=== PATIENT | female | born 1955 | race Caucasian/White ===

== ENCOUNTER 2017-01-29 02:37 | Emergency (ER) | payer OTHER ==
[2017-01-29] MEDS ORDERED: Ibuprofen TAB* 600 MG PO ONE (02:42)
[2017-01-29 03:31] LABS: Hematocrit 39 % (35-47); Hemoglobin 13.2 g/dl (12.0-16.0); Mean Corpuscular HGB Conc 34 g/dl (31-36); Mean Corpuscular Hemoglobin 29 pg (27-31); Mean Corpuscular Volume 85 fL (80-97); Mean Platelet Volume 8 um3 (7.4-10.4); Red Cell Distribution Width 13 % (10.5-15)
[2017-01-29 03:36] LABS: Albumin 3.5 g/dL (3.2-5.2); EGFR African American 78.1 (>60); EGFR Non-African American 60.7 (>60); Globulin 2.4 g/dL (2-4); Potassium 3.9 mmol/L (3.5-5.0); Total Bilirubin 0.6 mg/dL (0.2-1.0); Total Protein 5.9 g/dL (6.4-8.9)
[2017-01-29 04:08] VITALS: BP 103/82
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
== END 2017-01-29 04:10 | disposition home or self-care (01) ==
LOC: ED 02:37
DX: M79.1 Myalgia (principal)
CPT/HCPCS: 36415; 80053; 85025; 87502; 99283; A9270-GY

== ENCOUNTER 2017-02-27 07:29 | Day surgery (SDC) | payer OTHER ==
[~2017-02-27 07:29] MED LIST: Buffered Lidocaine 0.9% SYRIN* 5 ML/SYR SYRINGE ONE; Dexamethasone IV* 4 MG/ML 1 ML (4 MG) IV SLOW PU ONE; Dexamethasone IV* 4 MG/ML 1 ML (4 MG) ONE; Famotidine IV* 10 MG/ML 2 ML (20 mg) IV ONE; Famotidine IV* 10 MG/ML 2 ML (20 mg) ONE; ceFAZolin 2 GM PREMIX(*) 2 GM/50 ML BAG IVPB ONE
[2017-02-27] MEDS ORDERED: fentaNYL* 50 MCG/ML 2 ML VIAL (100 MCG VIAL) ONE ×2 (09:36→10:51)
[2017-02-27] MEDS ORDERED: Midazolam* 1 MG/ML 5 ML VIAL (5 MG) ONE (09:36)
[2017-02-27] MEDS ORDERED: HYDROcodone/ACETAMIN 5-325 MG* 1 TAB PO PRN (09:40)
[2017-02-27] MEDS ORDERED: fentaNYL* 50 MCG/ML 2 ML VIAL (100 MCG VIAL) IV PRN (09:40)
[2017-02-27] MEDS ORDERED: PROCHLORPERAZINE INJ 5 MG/ML 2 ML VIAL IV PRN (09:40)
[2017-02-27] MEDS ORDERED: Bupivacaine 0.5% W/EPI SDV* 30 ML VIAL ONE (09:42)
[2017-02-27] MEDS ORDERED: Lidocaine 1% INJ* 10 MG/ML 30 ML SDV ONE (09:42)
[2017-02-27] MEDS ORDERED: Lidocaine 2% PF * 5 ML VIAL ONE (09:59)
[2017-02-27] MEDS ORDERED: Propofol* 10 MG/ML 20 ML BTL IV PUSH ONE (09:59)
[2017-02-27] MEDS ORDERED: EPHEDrine (Pressors)* 50 MG/ML VIAL ONE (10:21)
[2017-02-27] MEDS ORDERED: Ondansetron INJ* 2 MG/ML VIAL ONE (11:00)
--- NOTE | 2017-02-27 11:49 | SURGPN ---
Brief Operative Note - Surgery Procedures: Procedures Pre-OP Diagnoses: R arm neurofibroma Post-op Diagnosis: same Procedure: Wide excision of neurofibroma, frozen sections, advancemant flap and primary closure Surgeon: Amarjit Asst: none Anethesia: local PEPE Jenkins EBL: minimal IVF: crystalloid Specimen: R forearm lesion Drains: none
[2017-02-27 12:30] VITALS: BP 111/64
--- NOTE | 2017-02-27 18:52 | OP ---
CC: Imer Newton NP * DATE OF OPERATION: 02/27/17 - [facility] DATE OF : 57 SURGEON: Jakob Ocasio MD. STRATEGIC ACCOUNT MANAGER: None. ANESTHESIOLOGIST: Dr. Jenkins. ANESTHESIA: Local MAC. PRE-OP DIAGNOSIS: Neurofibroma of the right forearm. POST-OP DIAGNOSIS: Neurofibroma of the right forearm. OPERATIVE PROCEDURE: Wide excision of right forearm lesion with frozen sections and advancement flaps and primary closure. ESTIMATED BLOOD LOSS: Minimal. FLUIDS: Minimal crystalloid fluid given. SPECIMEN: Right forearm lesion. DRAINS: None. DESCRIPTION OF PROCEDURE: The patient was identified in the preoperative area, marked, brought to the operating room on the stretcher, arm placed on a board. She was given gentle sedation and the arm was prepped and draped right down to the hand sterilely and a time-out was performed. Lesion on the anterior aspect of the forearm was measured 2 x 3 cm, encompassing a previous transverse scar, was identified. Planned elliptical incision was marked out that would be longitudinal along the forearm. We injected 1% lidocaine for local block at this proposed elliptical incision site which was then made. We deepened this to the subcutaneous tissue and when we got down to the lesion, at the mid portion of this ellipse, we made flaps laterally with scalpel. The lesion was taken right down to the fascia of the muscle. It did appear that nerves were entering into the lesion, these were cut , but did not show any active disease. Specimen was then marked at the 12 o' clock position and brought down to the pathologist. Reviewing the frozen sections with the pathologist, it appeared that the 3 o' clock portion of the specimen had positive margins and decision was made to do additional incision, as the medial aspect of the arm at 3 o'clock position with respect to the excised portion was cut off again in a similar fashion right down to the fascia, marked with a stitch, and sent down to the pathologist. While frozen section was pending, advancement flaps were made laterally and medially. The skin edges were brought in apposition to each other and closed in a horizontal mattress fashion with 3-0 nylon sutures. Skin edges came together with some tension at the mid portion, I tried to eliminate dog ears at the edges. The incision in itself did not cross the popliteal fossa. We awaited frozen sections which turned out to be negative for margin and the wound was dressed with Xeroform, 4 x 4, Kerlix, and Coban. The patient tolerated the procedure well, was transferred to the PACU in stable condition. [id number]/[facility] #: [id number] [facility] BRONX HOSPITALIsabell
== END 2017-02-27 12:50 | disposition home or self-care (01) ==
LOC: OR 07:29
PROVIDERS: ATTEND Surgery
DX: D36.10 Benign neoplasm of peripheral nerves and autonomic nervous system, unspecified (principal)
CPT/HCPCS: 88305; 88331; 88332; J0690; J1100; J2001; J2250; J2405; J2704; J3010

== ENCOUNTER 2018-06-25 14:34 | Emergency (ER) | payer OTHER ==
[2018-06-25] MEDS ORDERED: NS 0.9% 1000 ML* 1,000 ML IV ONE (14:45)
[2018-06-25 14:52] VITALS: BP 143/75
--- NOTE | 2018-06-25 14:58 | ED ---
Headache - HPI Summary HPI Summary: 62-year-old female with history of migraine headaches presented to urgent care for headache. All ambulating to exam room patient had syncopal episode with brief loss of consciousness, collapsing to the floor. This episode was witnessed and no seizure-like activity was noted. Patient was assisted to wheelchair and taken to exam room where she was arousable but slow to respond. A brief neurologic exam was performed. Patient was following commands but gave poor effort. There did appear to be some mild left facial droop, decreased strength in the left upper and lower extremities, as well as a decreased left tank car inspector strength. Patient reports headache is 10/10 and associated with photophobia and nausea. She denies chest pain, palpitations, sensory deficit, abdominal pain, or other injury. states patient awoke this morning with a headache. She called him at work this afternoon stating her headache was worsening and that she was vomiting. states that when he arrived home he found her sitting in the cdl driver's seat of her car and she was unable to explain to him why she was sitting there. Denies recent head trauma. He states patient was hospitalized about a year ago for her migraine headaches. She has been followed by Dr. Oconnell, neurology. - History Of Current Complaint Chief Complaint: UCHeadache Stated Complaint: HEADACHE Time Seen by Provider: 06/25/18 14:48 Hx Obtained From: Family/Director Pharmaceutical Hx Last Menstrual Period: post menopausal Onset/Duration: Started hours ago Initially Headache Was: Severe Currently Pain Is: Severe Timing: Constant Character: Unable To Describe Aggravating Factor: Nothing Allevating Factors: Nothing Associated Signs And Symptoms: Nausea, Vomiting, Other (Noted In Comments) - Allergies/Home Medications Allergies/Adverse Reactions: Allergies Allergy/AdvReac Type Severity Reaction Status Date / Time No Known Allergies Allergy Verified 02/27/17 07:48 PMH/Surg Hx/FS Hx/Imm Hx Previously Healthy: Yes Cardiovascular History: Reports: Other Cardiovascular Problems/Disorders - cardiac stress test 06/2008 - reports diagnosis dehydration History: Reports: Other Problems/Disorders - 2014 donated right kidney ( [facility]) Sensory History: Reports: Hx Contacts or Glasses - glasses Denies: Hx Hearing Aid Opthamlomology History: Reports: Hx Contacts or Glasses - glasses Neurological History: Reports: Hx Migraine - occas, no meds - Cancer History Cancer Type, Location and Year: denies - Surgical History Surgery Procedure, Year, and Place: Donated right kidney 05/2015 -([facility]) Hx Anesthesia Reactions: No Infectious Disease History: No Infectious Disease History: Denies: History Other Infectious Disease, Traveled Outside the [place] in Last 30 Days - Family History Family History: Noncontributory - Social History Occupation: Employed Full-time Lives: With Family Alcohol Use: None Substance Use Type: Reports: None Smoking Status (MU): Never Smoked Tobacco Have You Smoked in the Last Year: No Review of Systems Constitutional: Negative Positive: Photophobia Cardiovascular: Negative Respiratory: Negative Positive: Vomiting, Nausea Musculoskeletal: Negative Skin: Negative Positive: Headache, Syncope All Other Systems Reviewed And Are Negative: Yes Physical Exam Triage Information Reviewed: Yes Vital Signs On Initial Exam: Initial Vitals Temp Pulse Resp BP Pulse Ox 97.7 F 89 18 143/75 99 06/25/18 14:46 06/25/18 14:46 06/25/18 14:46 06/25/18 14:46 06/25/18 14:46 Vital Signs Reviewed: Yes Appearance: Positive: No Pain Distress, Ill-Appearing Skin: Positive: Warm, Skin Color Reflects Adequate Perfusion, Dry Head/Face: Positive: Other - Normocephalic and atraumatic Respiratory/Lung Sounds: Positive: Clear to Auscultation, Breath Sounds Present Cardiovascular: Positive: RRR, Pulses are Symmetrical in both Upper and Lower Extremities, S1, S2 Neurological: Positive: Disoriented, Facial Droop - left, Focal Deficit @ - Diminished left tank car inspector, upper, and lower extremity strength., Unable to Assess Gait, Speech Normal, Other - Arousable. Slow to respond. Oriented to self.. Negative: Dysphagia AVPU Assessment: Verbal (Reponds To) - Alexandre Coma Scale Best Eye Response: 4 - Spontaneous Best Motor Response: 6 - Obeys Commands Best Verbal Response: 4 - Confused Coma Scale Total: 14 Diagnostics - Vital Signs Vital Signs Temp Pulse Resp BP Pulse Ox 06/25/18 14:46 97.7 F 89 18 143/75 99 - Laboratory Diagnostic Studies Comment: FSBG 91 Lab Statement: Any lab studies that have been ordered have been reviewed, and results considered in the medical decision making process. - EKG No standard instances Cardiac Rate: NL - rate 63 EKG Rhythm: Sinus Rhythm ST Segment: Non-Specific Ectopy: None EKG Interpretation: SR. Probable left atrial enlargement. Borderline right axis deviation. Headache Course/Dx - Course Course Of Treatment: 62-year-old female with with history of migraine headaches presents for onset of headache upon waking this morning. Patient had syncopal episode with brief loss of consciousness while ambulating to the exam room. Patient was assisted to a wheelchair and taken to exam room. Patient was arousable but slow to respond. No seizure-like activity was noted. Patient oriented to self. She does follow commands but gives poor effort. She does appear to have some mild left facial droop, decreased left tank car inspector strength as well as left upper and lower extremity strength. Denies sensory deficit, chest pain, or palpitations. Vital signs were stable. IV was established. 12-lead EKG showed sinus rhythm with probable left atrial enlargement and borderline right axis deviation. Patient was transferred via [facility] to [facility] emergency room. - Diagnoses Differential Diagnosis/HQI/PQRI: CVA, Epidural Hematoma, Subdural Hematoma, Migraine, Subarachnoid Hemorrhage Provider Diagnoses: Acute headache, Syncope and collapse - Physician Notifications Discussed Care Of Patient With: Farida Petty Time Discussed With Above Provider: 14:40 Instructed by Provider To: MD Will See In ED Discharge - Sign-Out/Discharge Documenting (check all that apply): Patient Departure All imaging exams completed and their final reports reviewed: No Studies - Discharge Plan Condition: Critical Disposition: TRANS HIGHER LVL OF CARE FAC Patient Education Materials: Syncope (ED), Acute Headache (ED) Referrals: Imer Newton NP [Primary Care Provider] - - Billing Disposition and Condition Condition: CRITICAL Disposition: Trans Higher Lvl of Care Fac
[2018-06-25] MEDS ORDERED: NS 0.9% 1000 ML* 1,000 ML IV SCH (15:00)
== END 2018-06-25 15:00 | disposition short-term general hospital (02) ==
LOC: UCEAST 14:34
DX: R51 Headache (principal); R55 Syncope and collapse; H53.149 Visual discomfort, unspecified; R11.0 Nausea; Z95.5 Presence of coronary angioplasty implant and graft
CPT/HCPCS: 93005; 96360; 99213; G0463

== ENCOUNTER 2018-06-25 15:19 | Emergency (ER) | payer OTHER ==
[2018-06-25] MEDS ORDERED: PROCHLORPERAZINE INJ 5 MG/ML 2 ML VIAL IV ONE (15:42)
[2018-06-25] MEDS ORDERED: Valproic Acid IV(*) 500 MG in NS 0.9% 100 ML* 100 ML IVPB ONE (15:42)
[2018-06-25] MEDS ORDERED: NS 0.9% 1000 ML* 3,000 ML IV ONE (15:42)
[2018-06-25] MEDS ORDERED: Ketorolac INJ* 30 MG/ML 1 ML VIAL IV PUSH ONE (15:43)
--- NOTE | 2018-06-25 15:43 | ED ---
Headache - HPI Summary HPI Summary: The pt is a 62 y/o female with a Mhx of migraines presenting to [facility] c/o an occipital RAY since 0830 today morning. She was referred from Urgent Care where she was seen today. The pt notes nausea, one syncope episode, photophobia and unstable gait. The pt got admitted at [facility] in the past and received medications that were effective for the pain. However, she is unable to access her medical records and prescription after her account got locked. - History Of Current Complaint Stated Complaint: HEADACHE Time Seen by Provider: 06/25/18 15:35 Hx Obtained From: Patient Hx Last Menstrual Period: post menopausal Onset/Duration: Sudden Onset - 08:30 today, Still Present Currently Pain Is: Current Pain Scale(0-10)= - 8, Severe Character: Migraine Location of Headache: Occipital Aggravating Factor: Bright Lights Associated Signs And Symptoms: Nausea - Allergies/Home Medications Allergies/Adverse Reactions: Allergies Allergy/AdvReac Type Severity Reaction Status Date / Time No Known Allergies Allergy Verified 02/27/17 07:48 PMH/Surg Hx/FS Hx/Imm Hx Previously Healthy: No Endocrine/Hematology History: Denies: Hx Diabetes Cardiovascular History: Reports: Other Cardiovascular Problems/Disorders - cardiac stress test 06/2008 - reports diagnosis dehydration Denies: Hx Hypertension History: Reports: Other Problems/Disorders - 2014 donated right kidney ( [facility]) Sensory History: Reports: Hx Contacts or Glasses - glasses Denies: Hx Hearing Aid Opthamlomology History: Reports: Hx Contacts or Glasses - glasses Neurological History: Reports: Hx Migraine - occas, no meds - Cancer History Cancer Type, Location and Year: None - Surgical History Surgery Procedure, Year, and Place: Donated right kidney 05/2015 -([facility]) Hx Anesthesia Reactions: No Infectious Disease History: Denies: History Other Infectious Disease - Family History Known Family History: Negative: Cardiac Disease, Hypertension - Social History Occupation: Employed Full-time Lives: With Family Alcohol Use: None Substance Use Type: Reports: None Smoking Status (MU): Never Smoked Tobacco Have You Smoked in the Last Year: No Review of Systems Positive: Photophobia Positive: Nausea Positive: Other - Positive: unstable gait Positive: Headache, Syncope - 1 episode today All Other Systems Reviewed And Are Negative: Yes Physical Exam - Summary Physical Exam Summary: Appearance: Well-appearing, Well-nourished, lying in bed comfortably Skin: Warm, dry, no obvious rash Eyes: sclera anicteric, no conjunctival pallor ENT: mucous membranes moist, pharynx appears normal Neck: Supple, nontender Respiratory: Clear to auscultation, no signs of respiratory distress Cardiovascular: Normal S1, S2. No murmurs. Normal distal pulses in tibial and radial bilaterally. Abdomen: Soft, nontender, normal active bowel sounds present Musculoskeletal: Normal, Strength/ROM Intact, Motor function in all 4 extremities is normal and symmetric. There is no rigidity or tremor noted. Neurological: A&Ox3, awake and alert, mentation is normal, speech is fluent and appropriate, Level of consciousness nml. The patient is alert and oriented. Cranial nerves are grossly intact. Gaze is conjugate and without nystagmus. Peripheral vision is intact to confrontation. There are no gross sensory abnormalities to light touch. There is no truncal or fine motor ataxia. Gait is normal. Psychiatric: affect is normal, does not appear anxious or depressed Triage Information Reviewed: Yes Vital Signs On Initial Exam: Initial Vital Signs Pulse 56 06/25/18 15:30 Resp 22 06/25/18 15:30 Pulse Ox 100 06/25/18 15:30 Vital Signs Reviewed: Yes Headache Course/Dx - Course Course Of Treatment: A 62 year-old M/F presents to the ED with a CC of an occipital RAY since 0830 today morning. She was referred from Urgent Care where she was seen today. The pt notes nausea, one syncope episode, photophobia and unstable gait. The pt got admitted at [facility] in the past and received medications that were effective for the pain. A physical exam is unremarkable.In the ED course, pt was given Ketorolac 10mg IV, N.s 0.9% 3000 ml IV, Prochlorperazine 10 mg IV and Valproic Acid 500mg in 100ml N.s 0.9% IVPB, Sumatriptan 50mg PO which improved the symptoms. Patient will be discharged with a final Dx of migraine RAY. Pt is agreeable with this plan. Allergies noted. - Diagnoses Provider Diagnoses: Migraine headache Discharge - Sign-Out/Discharge Documenting (check all that apply): Patient Departure - DC - Discharge Plan Condition: Good Disposition: HOME Prescriptions: Prochlorperazine TAB* [Compazine Tab*] 10 mg PO Q6H PRN #12 tab PRN Reason: Nausea SUMAtriptan TAB* [Imitrex TAB*] 50 mg PO SEE INSTRUCTIONS PRN #12 tab PRN Reason: Migraine Headache Patient Education Materials: Migraine Headache (ED) Referrals: Imer Newton, CERTIFIED OPHTHALMIC TECHNOLOGIST [Nurse Practitioner] - 3 Days Additional Instructions: Return to ED for any new or worsening symptoms - Billing Disposition and Condition Condition: GOOD Disposition: Home - Attestation Statements Document Initiated by Vicibe: Yes Documenting Scribe: Caryn Ruiz Provider For Whom Robyn is Documenting (Include Credential): Dr. Jeff Vasquez MD Scribe Attestation: Caryn Schaeffer scribed for Dr. Jeff Vasquez MD on 06/26/18 at 1454. Scribe Documentation Reviewed: Yes Provider Attestation: The documentation as recorded by the Caryn cardoso accurately reflects the service I personally performed and the decisions made by me, Dr. Jeff Vasquez MD
[2018-06-25] MEDS ORDERED: SUMAtriptan TAB* 50 MG PO ONE (19:45)
[2018-06-25 21:34] VITALS: BP 140/71
== END 2018-06-25 21:34 | disposition home or self-care (01) ==
LOC: ED 15:19
DX: G43.909 Migraine, unspecified, not intractable, without status migrainosus (principal); R11.0 Nausea; R51 Headache; H53.149 Visual discomfort, unspecified
CPT/HCPCS: 99284; A9270-GY; J0780; J1885

== ENCOUNTER 2019-08-25 13:39 | Emergency (ER) | payer OTHER ==
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
--- OUTSIDE RECORDS SUMMARY | 2019-08-25 13:49 | XMS REPORT | Continuity of Care Document ---
:1955 External Reference #:[id number] Author Name Nabil Luna MD Address [address] [place] [address] Care Team Providers Name Role Phone Aure Sandhu MD Care Team Information Dispatcher Radioactive Waste Disposal [phone] Maggi Durant NP Care Team Information Dispatcher Radioactive Waste Disposal [phone] Problems Description No Information Available Social History Type Date Description Comments Sex Unknown Tobacco Use Start: Unknown Never Smoked Cigarettes Tobacco Use Start: Unknown Never Smoked Cigars Tobacco Use Start: Unknown Never Smoked A Pipe Smokeless Tobacco Never Used Smokeless Tobacco ETOH Use Denies alcohol use Tobacco Use Start: Unknown Patient has never smoked Smoking Status Reviewed: 08/18/19 Patient has never smoked Allergies, Adverse Reactions, Alerts Description No Known Drug Allergies Medications Active Medications SIG Qnty Indications Ordering Provider Date No Active Medications Unknown 06/26/2019 History Medications No Active Medications Unknown 05/12/2019 - 05/12/2019 Medrol take as directed 1pack Nabil Luna, 05/12/2019 - 4mg TBPK 06/25/2019 Immunizations Description No Information Available Vital Signs Date Vital Result Comment 06/26/2019 11:26am Weight 115.00 lb Weight 52.164 kg Height 65.50 inches 5'5.50" Height in cm's 166.4 cm BMI (Body Mass Index) 18.8 kg/m2 05/12/2019 9:15am Weight 115.00 lb Weight 52.164 kg Height 65.50 inches 5'5.50" Height in cm's 166.4 cm BMI (Body Mass Index) 18.8 kg/m2 Results Test Acquired Facility Test Result H/L Range Note Date Laboratory 06/16/2019 [facility] Blood Urea 23 mg/dL Normal 6-24 test finding c/o Department of [place] [address] [phone] Creatinine 06/16/2019 [facility] Creatinine 0.98 High 0.51-0.9 c/o Department of Laboratories mg/dL [address] [place] [address] [phone] Egfr Non- 57.5 >60 Egfr 69.6 >60 1 1 Because ethnic data is not always readily available, this report includes an eGFR for both -Americans and non- Americans. The National Kidney Disease Education Program (NKDEP) does not endorse the use of the MDRD equation for patients that are not between the ages of 18 and 70, are , have extremes of body size, muscle mass, or nutritional status, or are non- or non-. According to the National Kidney Foundation, irrespective of diagnosis, the stage of the disease is based on the level of kidney function: Stage Description GFR(mL/min/1.73 m(2)) 1 Kidney damage with normal or decreased GFR 90 2 Kidney damage with mild decrease in GFR 60-89 3 Moderate decrease in GFR 30-59 4 Severe decrease in GFR 15-29 5 Kidney failure <15 (or dialysis) Procedures Date Code Description Status 08/18/2019 68766 Fiberoptic Laryngoscopy Completed 06/12/2019 03879 Fiberoptic Laryngoscopy Completed 05/12/2019 33841 Fiberoptic Laryngoscopy Completed Medical Devices Description No Information Available Encounters Type Date Location Provider Dx Diagnosis Office Visit 06/26/2019 Radha,Reggie Luna, R07.0 Pain in throat 11:00a 09/23/07 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 Office Visit 05/12/2019 9:15a Reggie Garcia 09/23/07 Nabil Temple R07.0 Pain in MD Jeremy throat R13.13 Dysphagia, pharyngeal phase Assessments Date Code Description Provider 08/18/2019 R07.0 Pain in throat Nabil Luna MD 06/26/2019 R07.0 Pain in throat Nabil Luna MD 06/26/2019 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
== END 2019-08-25 13:48 | disposition left against medical advice (07) ==
LOC: UCEAST 13:39
DX: Z53.21 Procedure and treatment not carried out due to patient leaving prior to being seen by health care provider (principal)

== ENCOUNTER 2019-08-25 14:35 | Emergency (ER) | payer OTHER ==
[2019-08-25 19:00] LABS: Urine Appearance Clear; Urine Bilirubin Negative (Negative); Urine Blood Negative (Negative); Urine Color Yellow; Urine Glucose Negative (Negative); Urine Ketones Trace (Negative); Urine Nitrite Negative (Negative); Urine Protein Negative (Negative); Urine Specific Gravity 1.026 (1.010-1.030); Urine Urobilinogen Positive (Negative)
[2019-08-25 19:05] LABS: Urine Bacteria 1+ (Absent); Urine Red Blood Cell Trace(0-2/hpf) (Absent); Urine Squamous Epithelial Cell Present (Absent); Urine White Blood Cell Trace(0-5/hpf) (Absent)
[2019-08-25 19:09] LABS: ABS Eosinophils 0.1 10^3/ul (0-0.6); ABS Lymphocytes 1.5 10^3/ul (1.0-4.8); ABS Monocytes 0.7 10^3/ul (0-0.8); ABS Neutrophils 4.7 10^3/ul (1.5-7.7); Eosinophil % 1.5 %; Hematocrit 41 % (35-47); Hemoglobin 14.4 g/dL (12.0-16.0); Lymphocyte % 21.6 %; Mean Corpuscular HGB Conc 35 g/dL (31-36); Mean Corpuscular Hemoglobin 31 pg (27-31); Mean Corpuscular Volume 89 fL (80-97); Mean Platelet Volume 6.9 fL (7.4-10.4); Platelet Count 365 10^3/uL (150-450); Red Blood Count 4.65 10^6 /uL (3.70-4.87); Red Cell Distribution Width 13 % (10-15); White Blood Count 7.1 10^3/uL (3.5-10.8)
[2019-08-25 19:26] LABS: Albumin 4.3 g/dL (3.2-5.2); Albumin/Globulin Ratio 1.7 (1-3); BUN/Creatinine Ratio 24.2 (8-20); C Reactive Protein 3.85 mg/L (<8.01); Calcium 9.9 mg/dL (8.6-10.3); EGFR African American 75.8 (>60); EGFR Non-African American 62.6 (>60); Globulin 2.5 g/dL (2-4); Potassium 4.1 mmol/L (3.5-5.0); Total Bilirubin 0.4 mg/dL (0.2-1.0); Total Protein 6.8 g/dL (6.4-8.9)
[2019-08-25] MEDS ORDERED: Iodixanol* (CONTRAST) 320 MG/ML 100 ML SDV IV ONE (21:04)
[2019-08-25] MEDS ORDERED: Ciprofloxacin TAB* 500 MG PO ONE (22:21)
[2019-08-25] MEDS ORDERED: metroNIDAZOLE TAB* 250 MG PO ONE (22:23)
--- NOTE | 2019-08-25 22:24 | ED ---
Abdominal Pain/Female - HPI Summary HPI Summary: Patient complains of no bowel movement 1 week. Denies prior history of constipation. Patient states she took one laxative 3 days ago with one bowel movement yesterday with positive blood from straining. Denies blood from rectum today. Associated bilateral lower abdominal pain which is constant, started at 5 AM yesterday. Pain a rectum with bowel movement. Denies fever, cough, sore throat, CP, as SOB, N/V/D, change in urine, vaginal symptoms. Medical history is none. Abdominal surgical history is a donated kidney. - History of Current Complaint Chief Complaint: EDConstipation Stated Complaint: CONSTIPATION PER PT Time Seen by Provider: 08/25/19 17:48 Hx Obtained From: Patient Hx Last Menstrual Period: post menopausal Onset/Duration: Gradual Onset, Lasting Hours Timing: Constant Severity Initially: Severe Severity Currently: Severe Pain Intensity: 8 Pain Scale Used: 0-10 Numeric Location: Discrete At: RLQ, Discrete At: LLQ Radiates: No Character: Cramping Aggravating Factor(s): Nothing Alleviating Factor(s): Nothing Associated Signs and Symptoms: Positive: Constipation, Decreased Appetite Allergies/Adverse Reactions: Allergies Allergy/AdvReac Type Severity Reaction Status Date / Time No Known Allergies Allergy Verified 08/25/19 14:59 PMH/Surg Hx/FS Hx/Imm Hx Endocrine/Hematology History: Denies: Hx Diabetes Cardiovascular History: Reports: Other Cardiovascular Problems/Disorders - cardiac stress test 06/2008 - reports diagnosis dehydration Denies: Hx Hypertension, Hx Pacemaker/ICD History: Reports: Hx Renal Disease - abnormal gfr, Other Problems/ Disorders - 2014 donated right kidney ([facility]) Denies: Hx Dialysis Sensory History: Reports: Hx Contacts or Glasses - glasses Denies: Hx Hearing Aid Opthamlomology History: Reports: Hx Contacts or Glasses - glasses EENT History: Denies: Hx Deafness Neurological History: Reports: Hx Migraine - occas, no meds Psychiatric History: Denies: Hx Panic Disorder - Cancer History Cancer Type, Location and Year: None - Surgical History Surgery Procedure, Year, and Place: Donated right kidney 05/2015 -([facility]) Hx Anesthesia Reactions: No Infectious Disease History: No Infectious Disease History: Denies: History Other Infectious Disease, Traveled Outside the [place] in Last 30 Days - Family History Known Family History: Positive: None Negative: Cardiac Disease, Hypertension - Social History Alcohol Use: None Substance Use Type: Reports: None Smoking Status (MU): Never Smoked Tobacco Have You Smoked in the Last Year: No Review of Systems Constitutional: Negative Eyes: Negative ENT: Negative Cardiovascular: Negative Respiratory: Negative Gastrointestinal: Negative Genitourinary: Negative Musculoskeletal: Negative Skin: Negative Neurological: Negative Psychological: Normal All Other Systems Reviewed And Are Negative: Yes Physical Exam - Summary Physical Exam Summary: Abdomen diffusely tender. Triage Information Reviewed: Yes Vital Signs On Initial Exam: Initial Vitals Temp Pulse Resp BP Pulse Ox 98.4 F 87 16 102/82 99 08/25/19 14:54 08/25/19 14:54 08/25/19 14:54 08/25/19 14:54 08/25/19 14:54 Vital Signs Reviewed: Yes Appearance: Positive: Well-Appearing Skin: Positive: Warm Head/Face: Positive: Normal Head/Face Inspection Eyes: Positive: Normal Neck: Positive: Supple Respiratory/Lung Sounds: Positive: Clear to Auscultation Cardiovascular: Positive: Normal Abdomen Description: Positive: Other: Musculoskeletal: Positive: Normal Neurological: Positive: Normal Psychiatric: Positive: Normal AVPU Assessment: Alert - Alexandre Coma Scale Best Eye Response: 4 - Spontaneous Best Motor Response: 6 - Obeys Commands Best Verbal Response: 5 - Oriented Coma Scale Total: 15 Procedures - Sedation Patient Received Moderate/Deep Sedation with Procedure: No Diagnostics - Vital Signs Vital Signs Temp Pulse Resp BP Pulse Ox 08/25/19 17:00 98.1 F 70 16 120/61 100 08/25/19 14:54 98.4 F 87 16 102/82 99 - Laboratory Lab Results: Lab Results 08/25/19 08/25/19 08/25/19 Range/Units 18:41 18:58 18:58 WBC 7.1 (3.5-10.8) 10^3/uL RBC 4.65 (3.70-4.87) 10^6 /uL Hgb 14.4 (12.0-16.0) g/dL Hct 41 (35-47) % MCV 89 (80-97) fL MCH 31 (27-31) pg MCHC 35 (31-36) g/dL RDW 13 (10-15) % Plt Count 365 (150-450) 10^3/uL MPV 6.9 L (7.4-10.4) fL Neut % (Auto) 66.1 % Lymph % (Auto) 21.6 % Rincon % (Auto) 10.2 % Eos % (Auto) 1.5 % Baso % (Auto) 0.6 % Absolute Neuts (auto) 4.7 (1.5-7.7) 10^3/ul Absolute Lymphs (auto) 1.5 (1.0-4.8) 10^3/ul Absolute Monos (auto) 0.7 (0-0.8) 10^3/ul Absolute Eos (auto) 0.1 (0-0.6) 10^3/ul Absolute Basos (auto) 0.0 (0-0.2) 10^3/ul Absolute Nucleated RBC 0.0 10^3/ul Nucleated RBC % 0.0 Sodium 141 (135-145) mmol/L Potassium 4.1 (3.5-5.0) mmol/L Chloride 107 (101-111) mmol/L Carbon Dioxide 29 (22-32) mmol/L Anion Gap 5 (2-11) mmol/L BUN 22 (6-24) mg/dL Creatinine 0.91 (0.51-0.95) mg/dL Est GFR ( Amer) 75.8 (>60) Est GFR (Non-Af Amer) 62.6 (>60) BUN/Creatinine Ratio 24.2 H (8-20) Glucose 108 H (70-100) mg/dL Lactic Acid (0.5-2.0) mmol/L Calcium 9.9 (8.6-10.3) mg/dL Total Bilirubin 0.40 (0.2-1.0) mg/dL AST 18 (13-39) U/L ALT 15 (7-52) U/L Alkaline Phosphatase 101 (34-104) U/L C-Reactive Protein 3.85 (<8.01) mg/L Total Protein 6.8 (6.4-8.9) g/dL Albumin 4.3 (3.2-5.2) g/dL Globulin 2.5 (2-4) g/dL Albumin/Globulin Ratio 1.7 (1-3) Lipase 27 (11.0-82.0) U/L Urine Color Yellow Urine Appearance Clear Urine pH 6.0 (5-9) Ur Specific [place] 1.026 (1.010-1.030) Urine Protein Negative (Negative) Urine Ketones Trace A (Negative) Urine Blood Negative (Negative) Urine Nitrate Negative (Negative) Urine Bilirubin Negative (Negative) Urine Urobilinogen Positive A (Negative) Ur Leukocyte Esterase Trace A (Negative) Urine WBC (Auto) Trace(0-5/hpf) (Absent) Urine RBC (Auto) Trace(0-2/hpf) (Absent) Ur Squamous Epith Cells Present A (Absent) Urine Bacteria 1+ A (Absent) Urine Glucose Negative (Negative) 08/25/19 Range/Units 18:58 WBC (3.5-10.8) 10^3/uL RBC (3.70-4.87) 10^6 /uL Hgb (12.0-16.0) g/dL Hct (35-47) % MCV (80-97) fL MCH (27-31) pg MCHC (31-36) g/dL RDW (10-15) % Plt Count (150-450) 10^3/uL MPV (7.4-10.4) fL Neut % (Auto) % Lymph % (Auto) % Rincon % (Auto) % Eos % (Auto) % Baso % (Auto) % Absolute Neuts (auto) (1.5-7.7) 10^3/ul Absolute Lymphs (auto) (1.0-4.8) 10^3/ul Absolute Monos (auto) (0-0.8) 10^3/ul Absolute Eos (auto) (0-0.6) 10^3/ul Absolute Basos (auto) (0-0.2) 10^3/ul Absolute Nucleated RBC 10^3/ul Nucleated RBC % Sodium (135-145) mmol/L Potassium (3.5-5.0) mmol/L Chloride (101-111) mmol/L Carbon Dioxide (22-32) mmol/L Anion Gap (2-11) mmol/L BUN (6-24) mg/dL Creatinine (0.51-0.95) mg/dL Est GFR ( Amer) (>60) Est GFR (Non-Af Amer) (>60) BUN/Creatinine Ratio (8-20) Glucose (70-100) mg/dL Lactic Acid 0.7 (0.5-2.0) mmol/L Calcium (8.6-10.3) mg/dL Total Bilirubin (0.2-1.0) mg/dL AST (13-39) U/L ALT (7-52) U/L Alkaline Phosphatase (34-104) U/L C-Reactive Protein (<8.01) mg/L Total Protein (6.4-8.9) g/dL Albumin (3.2-5.2) g/dL Globulin (2-4) g/dL Albumin/Globulin Ratio (1-3) Lipase (11.0-82.0) U/L Urine Color Urine Appearance Urine pH (5-9) Ur Specific [place] (1.010-1.030) Urine Protein (Negative) Urine Ketones (Negative) Urine Blood (Negative) Urine Nitrate (Negative) Urine Bilirubin (Negative) Urine Urobilinogen (Negative) Ur Leukocyte Esterase (Negative) Urine WBC (Auto) (Absent) Urine RBC (Auto) (Absent) Ur Squamous Epith Cells (Absent) Urine Bacteria (Absent) Urine Glucose (Negative) Result Diagrams: 08/25/19 18:58 08/25/19 18:58 Lab Statement: Any lab studies that have been ordered have been reviewed, and results considered in the medical decision making process. Abdominal Pain Fem Course/Dx - Course Course Of Treatment: Patient complains of no bowel movement 1 week. Denies prior history of constipation. Patient states she took one laxative 3 days ago with one bowel movement yesterday with positive blood from straining. Denies blood from rectum today. Associated bilateral lower abdominal pain which is constant, started at 5 AM yesterday. Pain a rectum with bowel movement. Denies fever, cough, sore throat, CP, as SOB, N/V/D, change in urine, vaginal symptoms. Medical history is none. Abdominal surgical history is a donated kidney. Vital signs within normal limits. Labs unremarkable. CT abdomen and pelvis positive for colitis. Rx for Cipro and Flagyl. - Diagnoses Provider Diagnoses: Colitis Discharge ED - Sign-Out/Discharge Documenting (check all that apply): Patient Departure - Discharge Plan Condition: Stable Disposition: HOME Prescriptions: Ciprofloxacin HCl [Cipro] 500 mg PO BID 10 Days #20 tablet metroNIDAZOLE [Flagyl 500 MG TAB] 500 mg PO TID 10 Days #30 tab Patient Education Materials: Colitis (ED) Referrals: Aure Sandhu MD [Primary Care Provider] - Additional Instructions: Take both antibiotics as directed for intestinal infection. Tylenol for pain. Return to the ED for any new or worsening symptoms. - Billing Disposition and Condition Condition: STABLE Disposition: Home - Attestation Statements Provider Attestation: I was available for consultation for this patient. I did not evaluate the patient, or participate in any medical decision making or disposition decisions unless I am specifically named in the chart as having consulted on the patient. If I have consulted on the patient, please see my own ED note on the patient encounter. Stefania Schilling MD
[2019-08-25 23:03] VITALS: BP 135/78
== END 2019-08-25 22:53 | disposition home or self-care (01) ==
LOC: ED 14:35
DX: K52.9 Noninfective gastroenteritis and colitis, unspecified (principal); N20.0 Calculus of kidney; Z90.5 Acquired absence of kidney
CPT/HCPCS: 36415; 74177; 80053; 81003; 81015; 83605; 83690; 85025; 86140; 87086; 99282; A9270-GY; Q9967

== ENCOUNTER 2019-11-13 19:50 | Emergency (ER) | payer OTHER ==
[2019-11-13] MEDS ORDERED: Ondansetron INJ* 2 MG/ML VIAL IV ONE (19:56)
[2019-11-13] MEDS ORDERED: Morphine 4 MG/ML VIAL (1 ml) 4 MG/ML VIAL IV ONE (19:56)
[2019-11-13] MEDS ORDERED: NS 0.9% 1000 ML** 2,000 ML IV ONE (19:56)
[2019-11-13] MEDS ORDERED: Morphine 4 MG/ML VIAL (1 ml) 4 MG/ML VIAL IV PRN (19:56)
--- NOTE | 2019-11-13 19:58 | ED ---
Abdominal Pain/Female - HPI Summary HPI Summary: This patient is a 64 year old female presenting to [facility] with a chief complaint of epigastric/RUQ pain one hour ago. 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 She states no prior GIGU problems or surgeries except she donated one of her kidneys. She rates her pain 10/10 in pain severity. She denies n/v/d. - History of Current Complaint Stated Complaint: ABD PAIN PER EMS Hx Obtained From: Patient Hx Last Menstrual Period: post menopausal Onset/Duration: Lasting Hours Pain Intensity: 10 Pain Scale Used: 0-10 Numeric Location: Discrete At: RUQ, Epigastric Allergies/Adverse Reactions: Allergies Allergy/AdvReac Type Severity Reaction Status Date / Time dicyclomine Allergy Rash Verified 11/13/19 19:54 Home Medications: Home Medications Naproxen Sodium [Aleve] 220 mg PO Q6H PRN 10/01/19 [History Confirmed 11/13/19] Omeprazole CAP (NF) [Prilosec CAP* 20 MG] 20 mg PO DAILY #14 cap. 11/14/19 [Rx ] PMH/Surg Hx/FS Hx/Imm Hx Endocrine/Hematology History: Denies: Hx Diabetes Cardiovascular History: Reports: Other Cardiovascular Problems/Disorders - cardiac stress test 06/2008 - reports diagnosis dehydration Denies: Hx Hypertension, Hx Pacemaker/ICD History: Reports: Hx Renal Disease - abnormal gfr, Other Problems/ Disorders - 2014 donated right kidney ([facility]) Denies: Hx Dialysis Sensory History: Reports: Hx Contacts or Glasses - glasses Denies: Hx Deafness, Hx Hearing Aid Opthamlomology History: Reports: Hx Contacts or Glasses - glasses Neurological History: Reports: Hx Migraine - occas, no meds Psychiatric History: Denies: Hx Panic Disorder - Cancer History Cancer Type, Location and Year: None - Surgical History Surgery Procedure, Year, and Place: Donated right kidney 05/2015 -([facility]) Hx Anesthesia Reactions: No Infectious Disease History: Denies: History Other Infectious Disease - Family History Known Family History: Negative: Cardiac Disease, Hypertension - Social History Alcohol Use: None Substance Use Type: Reports: None Smoking Status (MU): Never Smoked Tobacco Have You Smoked in the Last Year: No Review of Systems Negative: Fever Positive: Abdominal Pain. Negative: Vomiting, Diarrhea, Nausea All Other Systems Reviewed And Are Negative: Yes Physical Exam - Summary Physical Exam Summary: Appearance: Well-appearing, Well-nourished, Elderly woman lying in bed in pain, appears colicky. Skin: Warm, dry, no obvious rash Eyes: sclera anicteric, no conjunctival pallor ENT: mucous membranes moist, pharynx appears normal Neck: Supple, nontender Respiratory: Clear to auscultation, no signs of respiratory distress Cardiovascular: Normal S1, S2. No murmurs. Normal distal pulses in tibial and radial bilaterally. Abdomen: Soft, nontender, normal active bowel sounds present. She is holding her epigastrium in pain, appears more tender in RUQ but her discomfort limits the exam. Musculoskeletal: Normal, Strength/ROM Intact. Neurological: A&Ox3, awake and alert, mentation is normal, speech is fluent and appropriate Psychiatric: affect is normal, does not appear anxious or depressed Triage Information Reviewed: Yes Vital Signs On Initial Exam: Temp Pulse Resp BP Pulse Ox 99.2 F 86 20 112/70 96 11/13/19 19:51 11/13/19 19:51 11/13/19 20:02 11/13/19 19:51 11/13/19 19:51 Vital Signs Reviewed: Yes Procedures - Sedation Patient Received Moderate/Deep Sedation with Procedure: No Diagnostics - Laboratory Result Diagrams: 11/13/19 20:05 11/13/19 20:05 Lab Statement: Any lab studies that have been ordered have been reviewed, and results considered in the medical decision making process. - CT Abd/Pel CT Interpretation Completed By: Radiologist Summary of CT Findings: 1. No CT findings to correlate with patient's symptomology. 2. Left nephrolethiasis. ED Provider has reviewed this report. - Ultrasound No standard instances Ultrasound Interpretation Completed By: Radiologist Summary of Ultrasound Findings: Gallbladder US: No sonographic findings to correlate with patient's symptomology. ED Provider has reviewed this report. Re-Evaluation - Re-Evaluation First Eval Re-Evaluation Time: 01:28 Change: Improved Comment: Patient states her symptoms have resolved and she is ready to go home. Abdominal Pain Fem Course/Dx - Course Course Of Treatment: This patient is a 64 year old female presenting to [facility] with a chief complaint of epigastric/RUQ pain one hour ago. Physical exam reveals her holding her epigastrium in pain, appears more tender in RUQ but her discomfort limits the exam. Gallbladder US is unremarkable. Labs are unremarkable except RBC 4.90 H, MPV 7.0 L, Creatinine 0.99 H, BUN/Creatinine Ratio 24.2 H, Calcium 10.6 H. She received morphine for pain. Plan for discharge was discussed with the patient and she understands and agrees with this plan. - Diagnoses Provider Diagnoses: Abdominal pain Discharge ED - Sign-Out/Discharge Documenting (check all that apply): Patient Departure - Discharge Plan Condition: Good Disposition: HOME Prescriptions: Omeprazole CAP (NF) [Prilosec CAP* 20 MG] 20 mg PO DAILY #14 cap. Patient Education Materials: Acute Abdominal Pain (ED) Referrals: Aure Sandhu MD [Primary Care Provider] - 3 Days Additional Instructions: All the tests we ran including US, CT scan and blood work were unremarkable; we could not nail down a diagnosis of your pain. It is possible that you had a gallstone that passed, but that is just speculation at this point. Ulcers and stomach inflammation can also cause upper abdominal pain that would not show on the tests we did, so for a short time I am going to put you on anti ulcer medication. - Billing Disposition and Condition Condition: GOOD Disposition: Home - Attestation Statements Document Initiated by Robyn: Yes Documenting Robyn: Petar Bee Provider For Whom Robyn is Documenting (Include Credential): Jeff Vasquez MD Scribbrianna Attestation: IPetar, scribed for Jeff Vasquez MD on 11/15/19 at 1949. Scribe Documentation Reviewed: Yes Provider Attestation: The documentation as recorded by the Petar cardoso accurately reflects the service I personally performed and the decisions made by me, Jeff Vasquez MD Status of Scresvin Document: Viewed
--- OUTSIDE RECORDS SUMMARY | 2019-11-13 19:58 | XMS REPORT | Continuity of Care Document ---
:1955 External Reference #:[id number] Author Name Costa Matamoros MD Address [address] [place], [place] [address] Care Team Providers Name Role Phone Aure Sandhu MD Care Team Information Cashier General [phone] Problems Active Problems Provider Date Contusion of chest Keeley Martinez MD Onset: 01/28/2014 Migraine without aura, not refractory Asael Oconnell MD Onset: 01/28/2014 Other specified diseases of anus and Sarah Ardon PA-C Onset: 2018 rectum Rectal pain Sarah Ardon PA-C Onset: 09/10/2019 Gastrointestinal tract finding Sarah Ardon PA-C Onset: 09/10/2019 Abdominal pain Sarah Ardon PA-C Onset: 09/10/2019 Digestive symptom Sarah Ardon PA-C Onset: 09/10/2019 Social History Type Date Description Comments Sex Unknown Tobacco Use Start: Unknown Patient has never smoked Smoking Status Reviewed: 09/10/19 Patient has never smoked Allergies, Adverse Reactions, Alerts Description No Known Drug Allergies Medications Active Medications SIG Qnty Indications Ordering Provider Date Vancomycin HCL 1 cap by mouth 40caps Costa Matamoros, 09/11/2019 125mg four times a day MD Capsules for 10 days Dicyclomine HCL 1-2 caps by mouth 270caps Costa Matamoros, 09/10/2019 10mg up to 4 times a MD Capsules day as needed for cramping/pain Peg-3350/Electrolyte by mouth as 4000ml Costa Matamoros, 09/10/2019 s yvonne KRAUSE 236gm Solution Rec History Medications No Active Medications Unknown 09/10/2019 - 09/10/2019 Immunizations Description No Information Available Vital Signs Date Vital Result Comment 09/10/2019 11:25am Height 65 inches 5'5" Weight 109.00 lb BP Systolic 139 mmHg BP Diastolic 76 mmHg Heart Rate 88 /min BMI (Body Mass Index) 18.1 kg/m2 Results Test Acquired Date Facility Test Result H/L Range Note Laboratory test 10/12/2019 [facility] [place] Surgical SEE RESULT 1 finding Pathology Order BELOW Laboratory test 09/11/2019 [facility] C Difficile PCR SEE RESULT 2, 3 finding BELOW Xray 08/25/2019 [facility] Radiology CT, Abd & <pending> Pelvis W/ Contrast 1 SEE RESULT BELOW Name: MYLENE QUINTERO : [address]: Costa Matamoros MD Acct: [id number] Unit: [id number] AGE: 64 Location: ENDO Re10/12/19 SEX: F Status: DEP REF SPEC: [id number] NILS: 10/12/19-[address] [facility] [address]: Costa Matamoros MD REQ: [id number] RECD: 10/12/19-1199 STATUS: SOUT _ ORDERED: LEVEL 4/2 FINAL DIAGNOSIS 1. Colon, random, biopsy: -- Benign colonic mucosa with no significant pathologic abnormalities. -- No evidence of microscopic colitis. 2. Colon, at 10 cm, biopsy: -- Hyperplastic polyps. CLINICAL HISTORY Abnormal CT POST-OPERATIVE DIAGNOSIS Colonoscopy: to cecum; normal; random biopsy; at 10 cm biopsy (2); diverticulosis GROSS DESCRIPTION 1. The specimen is received in formalin labeled, Biopsy Random Colon, and consists of a 0.7 x 0.4 by up to 0.2 cm aggregate of pride-pink irregular soft tissue fragments which is submitted entirely in one cassette. 2. The specimen is received in formalin labeled, Biopsy Colon Polyps at 10 cm, and consists of two pride-pink irregular soft tissue fragments measuring 0.3 x 0.2 by up to 0.2 cm and 1.0 by up to 0.2 x 0.1 cm which are submitted entirely in one cassette. CONTINUED ON NEXT PAGE DEPARTMENT OF PATHOLOGY, [address] [place] [address] Thomas Pineda M.D. Director [facility] # [id number] Signed by and Reported on: Maggi Chang MD 10/13/19 1452 END OF REPORT DEPARTMENT OF PATHOLOGY, [address] [place] [id number] Thomas Pineda M.D. Director [facility] # [id number] 2 [id number] 3 SEE RESULT BELOW Name: MYLENE QUINTERO : [address]: Sarah FORMAN Acct: [id number] Unit: [id number] AGE: 63 Location: [facility] Re09/11/19 SEX: F Status: REG REF SPEC: [id number] NILS: 09/11/19-[address]: Sarah FORMAN REQ: [id number] RECD: 09/11/19 STATUS: COMP _ SOURCE: STOOL SPDESC: ORDERED: C. diff PCR, Stool Culture, O P: Giar/Crypt COMMENTS: [id number] Verbal to TAMARA Tuttle/Office by [id number] at 1311 on 09/11/19. Results read back accurately. Procedure Result Reported Site Stool Culture Final 09/13/19- 1120 ML Result No enteric pathogens isolated No growth of normal enteric belinda Testing for Salmonella, Shigella, Aeromonas, Plesiomonas, Yersinia and Campylobacter are included in a Stool Culture. Vibrio spp not routinely tested for in a stool culture. If testing is desired, please request specifically when placing test order. Sensitivities not routinely performed on stool isolates, as antibiotics may prolong the carriage rate of bacteria. Please contact the microbiology lab if sensitivities are required. Stool Specimen Description Final 09/11/19- 1232 ML Stool Color Brown Stool Form Nonformed Stool Consistency Liquid Shiga Toxin 1 2 Final 09/14/19- 1108 ML Organism 1 Negative Shiga Toxin 1 2 CONTINUED ON NEXT PAGE DEPARTMENT OF PATHOLOGY, [address] [place] [address] Thomas Pineda M.D. Director [facility] # [id number] Patient: MYLENE QUINTERO [id number] (Continued) Specimen: [id number] Collected: 09/11/19-999 Received: 09/11/19-1052 (Continued) Procedure Result Reported Site Shiga Toxin 1 2 Final (continued) 09/14/19- 1108 Immunochromatographic Assay. As with all diagnostic procedures, the laboratory results obtained should be used in conjunction with other clinical information available to the physician, including confirmation by another method, as applicable. C. difficile PCR Final 09/11/19- 1310 ML Organism 1 027 Presumptive NEGATIVE Organism 2 Toxigenic C.diff POSITIVE As with all diagnostic procedures, the laboratory results obtained should be used in conjunction with other clinical information available to the physician, including confirmation by another method, as applicable. O P: Giardia/Cryptospor Screen Final 09/11/19- 1415 ML Organism 1 Neg Cryptosporidium/Giardia Giardia and cryptosporidium antigen testing performed by enzyme immunoassay. If patient is immunocompromised or has traveled to or is from a developing country, a full ova and parasite exam with microscopic (OPMIC) is recommended. All samples will be held 21 days in case full ova and parasite testing is requested. Contact the Microbiology Department at [phone]. TEST LIMITATIONS: As with all diagnostic procedures, the results obtained should be used in conjunction with other clinical information available to the physician, including confirmation by another method. Negative results can occur in samples containing antigen below lower limits of detection of the assay. One negative specimen does not rule out the possibility of a parasitic infection. To improve detection it is recommended that three specimens be CONTINUED ON NEXT PAGE DEPARTMENT OF PATHOLOGY, [address] [place] [address] Thomas Pineda M.D. Director [facility] # [id number] Patient: MYLENE QUINTERO [id number] (Continued) Specimen: [id number] Collected: 09/11/19 Received: 09/11/19 (Continued) Procedure Result Reported Site O P: Giardia/Cryptospor Screen Final (continued) 09/11/191414 collected on separate days over a period of not more than seven days. The use of colonic washes, aspirates or other diluted sample types has not been established and could affect the performance of the assay. Stool samples contaminated with an oily or particulate base (eg. Barium, mineral oil etc.) could interfere with the test and are not recommended. * - Main Lab . END OF REPORT DEPARTMENT OF PATHOLOGY, [address] [place] [address] Thomas Pineda M.D. Director [facility] # [id number] Procedures Description No Information Available Medical Devices Description No Information Available Encounters Type Date Location Provider Dx Diagnosis Office Visit 09/10/2019 Gastroenterology Sarah Montano R19.4 Change in bowel 11:30a [facility] SONIA Ardon habit R19.8 Oth symptoms and signs involving the dgstv sys and abdomen K62.89 Other specified diseases of anus and rectum R10.30 Lower abdominal pain, unspecified R93.3 Abnormal findings on dx imaging of prt digestive tract Assessments Date Code Description Provider 09/10/2019 R19.4 Change in bowel habit Sarah Ardon PA-C 09/10/2019 R19.8 Other specified symptoms and signs DICKSON Lee involving the digestive system and abdomen 09/10/2019 K62.89 Other specified diseases of anus and Sarah Ardon PA-C rectum 09/10/2019 R10.30 Lower abdominal pain, unspecified DICKSON Lee 09/10/2019 R93.3 Abnormal findings on diagnostic imaging Sarah Ardon PA-C of other parts of digestive tract Plan of Treatment No Information Available Functional Status Description No Information Available Mental Status Description No Information Available Referrals Description No Information Available
--- OUTSIDE RECORDS SUMMARY | 2019-11-13 19:58 | XMS REPORT | Continuity of Care Document ---
:1955 External Reference #:[id number] Author Name Sarah Ardon PA-C Address [address] [place] [address] Care Team Providers Name Role Phone Aure Sandhu MD Care Team Information Box Stamper [phone] Problems Active Problems Provider Date Contusion of [...] HCL 1 cap by mouth 40caps Costa Sma Matamoros, 09/11/2019 125mg four times a day MD Capsules for 10 days Dicyclomine HCL 1-2 caps by mouth 270caps Costa Sam Matamoros, 09/10/2019 10mg up to 4 times a MD Capsules day as needed for cramping/pain Peg-3350/Electrolyte by mouth as 4000ml Costa Matamoros, 09/10/2019 s directed 236gm Solution Rec History Medications No Active Medications Unknown 09/10/2019 - 09/10/2019 Immunizations Description No Information Available Vital Signs Date Vital Result Comment 09/10/2019 11:25am Height 65 inches 5'5" Weight 109.00 lb BP Systolic 139 mmHg BP Diastolic 76 mmHg Heart Rate 88 /min BMI (Body Mass Index) 18.1 kg/m2 Results Test Acquired Date Facility Test Result H/L Range Note Laboratory test 09/11/2019 [facility] [place] C Difficile PCR SEE RESULT 1, 2 finding BELOW Xray 08/25/2019 [facility] [place] Radiology CT, Abd & <pending> Pelvis W/ Contrast 1 [id number] SEE RESULT BELOW Name: TRAMYLENE : [address]: Sarah FORMAN Acct: [id number] Unit: [id number] AGE: 63 Location: [facility] Re09/11/19 SEX: F Status: REG REF SPEC: [id number] NILS: 09/11/19-[address]: Sarah FORMAN REQ: [id number] RECD: 09/11/19 STATUS: COMP _ SOURCE: STOOL SPDESC: ORDERED: C. diff PCR, Stool Culture, O P: Giar/Crypt COMMENTS: [id number] Verbal to TAMARA Tuttle/Office by [place] [id number] at 1311 on 09/11/19. Results read back [...] CONTINUED ON NEXT PAGE DEPARTMENT OF PATHOLOGY, [address] [place] [address] Thomas Pineda M.D. Director [facility] # [id number] Patient: MYLENE QUINTERO [id number] (Continued) Specimen: [id number] Collected: 09/11/19-999 Received: 09/11/19 (Continued) Procedure Result Reported Site Shiga Toxin [...] is requested. Contact the Microbiology Department at [phone]. TEST LIMITATIONS: As with all diagnostic procedures, [...] CONTINUED ON NEXT PAGE DEPARTMENT OF PATHOLOGY, [address] [place] [address] Thomas Pineda M.D. Director [facility] # [id number] Patient: MYLENE QUINTERO [id number] (Continued) Specimen: [id number] Collected: 09/11/19-999 Received: 09/11/19-1052 (Continued) Procedure Result Reported Site O P: Giardia/Cryptospor Screen Final (continued) 09/11/19- 1414 collected on separate days over a period of not more than seven days. The use of colonic washes, aspirates or other diluted sample types has not been established and could affect the performance of the assay. Stool samples contaminated with an oily or particulate base (eg. Barium, mineral oil etc.) could interfere with the test and are not recommended. * ML - Main Lab . END OF REPORT DEPARTMENT OF PATHOLOGY, [address] [place] [address] Thomas Pineda M.D. Director [facility] # [id number] Procedures Description No Information Available Medical Devices Description No Information Available Encounters Description No Information Available Assessments Date Code Description Provider 09/10/2019 R19.4 [...] parts of digestive tract Plan of Treatment Future Appointment(s):10/12/2019 11:00 am - [facility]/10/2019 - ESTEBAN LeeCR19.4 Change in bowel qqscjW68.8 Other specified symptoms and signs involving the digestive system and dxfclivN02.89 Other specified diseases of anus and pwoeayN40.30 Lower abdominal pain, qswpjukuibdM04.3 Abnormal findings on diagnostic imaging of other parts of digestive tract Functional Status Description No Information Available Mental Status Description No Information Available Referrals Description No Information Available
[2019-11-13] MEDS ORDERED: Morphine 10 MG/ML VIAL (1 ml) IV ONE (20:20)
[2019-11-13 20:21] LABS: ABS Eosinophils 0.1 10^3/ul (0-0.6); ABS Lymphocytes 2.1 10^3/ul (1.0-4.8); ABS Monocytes 0.6 10^3/ul (0-0.8); ABS Neutrophils 4.1 10^3/ul (1.5-7.7); Eosinophil % 0.8 %; Hematocrit 43 % (35-47); Hemoglobin 14.6 g/dL (12.0-16.0); Lymphocyte % 30.6 %; Mean Corpuscular HGB Conc 34 g/dL (31-36); Mean Corpuscular Hemoglobin 30 pg (27-31); Mean Corpuscular Volume 88 fL (80-97); Nucleated Red Blood Cells % 0.1; Platelet Count 347 10^3/uL (150-450); Red Cell Distribution Width 13 % (10-15); White Blood Count 6.9 10^3/uL (3.5-10.8)
[2019-11-13 20:38] LABS: Albumin 4.7 g/dL (3.2-5.2); Albumin/Globulin Ratio 1.7 (1-3); BUN/Creatinine Ratio 24.2 (8-20); Calcium 10.6 mg/dL (8.6-10.3); EGFR African American 68.5 (>60); EGFR Non-African American 56.7 (>60); Globulin 2.7 g/dL (2-4); Total Bilirubin 0.3 mg/dL (0.2-1.0); Total Protein 7.4 g/dL (6.4-8.9)
[2019-11-13] MEDS ORDERED: Propofol* 10 MG/ML 20 ML BTL IV PUSH ONE (20:48)
[2019-11-13 21:24] LABS: Potassium 4.1 mmol/L (3.5-5.0)
[2019-11-13 22:29] LABS: Urine Appearance Clear; Urine Bilirubin Negative (Negative); Urine Blood Negative (Negative); Urine Color Yellow; Urine Glucose Negative (Negative); Urine Ketones Negative (Negative); Urine Nitrite Negative (Negative); Urine Protein Negative (Negative); Urine Specific Gravity 1.018 (1.010-1.030); Urine Urobilinogen Negative (Negative)
[2019-11-13] MEDS ORDERED: PROCHLORPERAZINE INJ 5 MG/ML 2 ML VIAL IV ONE (22:39)
[2019-11-13] MEDS ORDERED: Iodixanol* (CONTRAST) 320 MG/ML 100 ML SDV IV ONE (23:41)
[2019-11-14 01:34] VITALS: BP 124/76
== END 2019-11-14 01:32 | disposition home or self-care (01) ==
LOC: ED 19:50
DX: R10.13 Epigastric pain (principal); Z90.5 Acquired absence of kidney; Z79.899 Other long term (current) drug therapy; Z88.8 Allergy status to other drugs, medicaments and biological substances
CPT/HCPCS: 36415; 74177; 76705; 80053; 81003; 83690; 85025; 96361; 96374; 96375; 96376; 99283; J0780; J2270; J2405; J2704; Q9967